=== PATIENT | female | born 1980 | race American Indian/Alaskan Native ===

== ENCOUNTER 2017-07-18 14:08 | Emergency (ER) | payer MEDICAID ==
[2017-07-18] MEDS ORDERED: TYLENOL PO ONE (18:51)
--- NOTE | 2017-07-18 19:41 | XRay Report ---
FINAL REPORT EXAM: XR CHEST 1V AP HISTORY: chest pain TECHNIQUE: Single, portable chest x-ray. PRIORS: 17 March 2015. FINDINGS: Cardiac and mediastinal silhouette within normal limits. Lungs are normally expanded, without significant vascular congestion. No focal consolidation or apparent pneumothorax. Bony thorax grossly unremarkable. IMPRESSION: 1. No acute findings.
--- NOTE | 2017-07-18 21:20 | Cat Scan Report ---
FINAL REPORT EXAM: CT HEAD/BRAIN WO CON HISTORY: headache, blurry vision y/d, right arm heavy TECHNIQUE: Noncontrast CT axial images of the brain. PRIORS: None. FINDINGS: No parenchymal mass, mass effect, hemorrhage, midline shift or hydrocephalus. No evidence of acute cortical infarct. No abnormal, extra-axial fluid or air collection. Osseous calvarium grossly intact. IMPRESSION: 1. No acute intracranial findings.
--- NOTE | 2017-07-18 21:25 | Emergency Department Report ---
Chief Complaint: Extremity Injury, Upper Stated Complaint: RIGHT SHOULDER /ARM WEAKNESS Time Seen by Provider: 07/18/17 18:41 - HPI History of Present Illness: The patient is a 36-year-old female who presents for evaluation of chest pain and neuro deficits. The patient states that she has experienced right-sided chest pain radiating to the right arm, mild in severity, aching quality, associated with heaviness in the right arm. She also reports experiencing blurriness of vision and dizziness while at work and that spontaneously resolved. - Exam Vital Signs: Vital Signs 07/18/17 07/18/17 14:37 18:58 Temperature 98.2 F Pulse Rate 74 Respiratory 18 16 Rate Blood Pressure 126/72 O2 Sat by Pulse 97 Oximetry MSE screening note: Focused history and physical exam performed. Due to findings the following was ordered: ED Disposition for MSE Condition: Stable Referrals: PRIMARY CARE, [Primary Care Provider] - 3-5 Days
--- NOTE | 2017-07-18 21:40 | Emergency Department Report ---
Upper Extremity - HPI Chief Complaint: Extremity Injury, Upper Stated Complaint: RIGHT SHOULDER /ARM WEAKNESS Time Seen by Provider: 07/18/17 18:41 Upper Extremity: Right Arm Occurred When: 2 Days Severity: moderate Symptoms: Yes Pain with Movement, No Deformity, No Limited Range of Movement, No Numbness, No Weakness, No Swelling, No Bruising/Ecchymosis, No Laceration or Abrasion Other History: The patient is a 36-year-old female who presents for evaluation of chest pain and neuro deficits. The patient states that she has experienced right-sided chest pain radiating to the right arm, mild in severity, aching quality, associated with heaviness in the right arm. She also reports experiencing blurriness of vision and dizziness while at work and that spontaneously resolved. ED Review of Systems ROS: Stated complaint: RIGHT SHOULDER /ARM WEAKNESS Other details as noted in HPI Constitutional: denies: chills, fever Eyes: denies: eye pain, eye discharge, vision change ENT: denies: ear pain, throat pain Respiratory: denies: cough, shortness of breath, wheezing Cardiovascular: chest pain (right sided chest pain ). denies: palpitations, dyspnea on exertion, orthopnea, syncope, paroxysmal nocturnal dyspnea Endocrine: no symptoms reported Gastrointestinal: denies: abdominal pain, nausea, diarrhea Genitourinary: denies: urgency, dysuria, discharge Musculoskeletal: myalgia Skin: denies: rash, lesions Neurological: denies: headache, weakness, numbness, paresthesias, confusion, vertigo Psychiatric: denies: anxiety, depression Hematological/Lymphatic: denies: easy bleeding, easy bruising ED Past Medical Hx - Past Medical History Additional medical history: DEPRESSION, ANXIETY - Surgical History Past Surgical History?: No - Social History Smoking Status: Never Smoker Substance Use Type: None - Medications Home Medications: Home Medications Medication Instructions Recorded Confirmed Last Taken Type Acetaminophen/Codeine [Tylenol #3] 1 tab PO Q6H PRN #20 tab 03/17/15 Unknown Rx Cyclobenzaprine [Flexeril] 10 mg PO TID PRN #20 tablet 03/17/15 Unknown Rx Ibuprofen [Motrin 800 MG tab] 800 mg PO Q8HR PRN #30 tablet 03/17/15 Unknown Rx Naproxen 500 mg PO BID #20 tablet 07/18/17 Unknown Rx Upper Extremity Exam - Exam General: Vital signs noted. No distress. Alert and acting appropriately. Head and Torso: No HEENT Abnormality, No Neck Tenderness, No Chest/Lungs Abnormality, No Abdominal Tenderness, No Back Tenderness Shoulder Exam: Yes Shoulder Tenderness, Yes Normal Range of Motion in Shoulder, No Clavicle Tenderness, No Shoulder Deformity, No AC Joint Tenderness Arm Exam: No Arm/Humerus Tenderness, No Arm Deformity Elbow: Yes Normal Range of Motion in Elbow, No Elbow Tenderness, No Elbow Deformity Forearm: No Forearm Tenderness, No Forearm Deformity, No Pain with Pronation, No Pain with Supination Wrist: Yes Normal ROM in Wrist, No Wrist Tenderness, No Wrist Deformity, No Snuffbox Tenderness, No Pain with Axial Thumb Compression Hand: Yes Normal ROM in Digit(s), No Hand Tenderness, No Hand Deformity, No Digit Tenderness, No Digit(s) Deformity, No Tendon Dysfunction CMS Exam: Yes Normal Distal Pulses, Yes Normal Capillary Refill, Yes Normal Distal Sensation, No Broken Skin ED Course Vital Signs 07/18/17 07/18/17 14:37 18:58 Temperature 98.2 F Pulse Rate 74 Respiratory 18 16 Rate Blood Pressure 126/72 O2 Sat by Pulse 97 Oximetry ED Medical Decision Making - Radiology Data Radiology results: report reviewed, image reviewed cxr normal no opacities no infiltrates, ct head : no infarct no bleed, normal head ct . - Medical Decision Making all symptoms are resolved at this time, right shoulder rom intact abduction adduction, cp resolve there is no deformity no swelling no weakness no numbness. plan dc to home in stable condition with rx for nsaids moist heat therapy [place] exercises follow up with pcp in 2-3 days, return to ed if symptoms worsen. Critical care attestation.: If time is entered above; I have spent that time in minutes in the direct care of this critically ill patient, excluding procedure time. ED Disposition Clinical Impression: Radiculopathy of arm, Musculoskeletal pain of extremity Disposition: DC-01 TO HOME OR SELFCARE Is pt being admited?: No Does the pt Need Aspirin: No Condition: Good Instructions: Cervical Radiculopathy (ED), Paresthesia (ED) Prescriptions: Naproxen 500 mg PO BID #20 tablet Referrals: PRIMARY CARE, [Primary Care Provider] - 3-5 Days [facility] [Outside] - 3-5 Days Forms: Work/School Release Form(ED) Time of Disposition: 21:48
[2017-07-18 22:08] VITALS: BP 121/75
== END 2017-07-18 22:08 | disposition home or self-care (01) ==
LOC: ED 14:08
DX: M54.10 Radiculopathy, site unspecified (principal); M79.1 Myalgia; R07.89 Other chest pain; R42 Dizziness and giddiness; M25.511 Pain in right shoulder; F32.9 Major depressive disorder, single episode, unspecified; F41.9 Anxiety disorder, unspecified
CPT/HCPCS: 70450; 71045